=== PATIENT | female | born 1960 | race Caucasian/White ===

== ENCOUNTER → 2018-10-31 | Outpatient (CLI) | payer MEDICARE, OTHER ==
[~2018-10-31] MED LIST: ALPR.5 PO; ALPR1 PO; AMLO10 PO; ASPI81CH PO; CLON.1 PO; DIPH50 PO; ENOX40I SC; FAMO40 PO; FURO20 PO; FURO40 PO; Klor-Con 1010 MEQ PO; LISI20 PO; LISI5 PO; LOSARTAN-HCTZ1 EAC2 PO; MORP30ER PO; Morphine Sulfat15 MG PO; ONDA8 PO; OXYACE5T PO; POTCHL10ER PO; PROM25 PO; SOMA250 MG PO; TOPI100 PO
== END | disposition home or self-care (01) ==
LOC: PLD 08:53 → LAB SHORT 08:53
DX: D17.21 Benign lipomatous neoplasm of skin and subcutaneous tissue of right arm (principal)
CPT/HCPCS: 88304

== ENCOUNTER 2023-02-01 21:56 | Inpatient (IN) | payer MEDICARE, OTHER ==
[~2023-02-01] VITALS: Ht 154.9 cm; Wt 96.6 kg
[2023-02-01 22:34] LABS: BASOPHILS ABSOLUTE AUTO 0.03 K/mm3 (0.00-0.23); BASOPHILS PERCENT AUTO 0 % (0-2); EOSINOPHILS ABSOLUTE AUTO 0.06 K/mm3 (0.00-0.68); EOSINOPHILS PERCENT AUTO 1 % (0-6); Hematocrit 42.2 % (33.0-51.0); Hemoglobin 13.4 g/dL (11.5-16.0); IMMATURE GRAN ABSOLUTE AUTO 0.02 K/mm3 (0.00-0.10); IMMATURE GRAN PERCENT AUTO 0 % (0-1); LYMPHOCYTES ABSOLUTE AUTO 1.83 K/mm3 (0.84-5.20); LYMPHOCYTES PERCENT AUTO 20 % (21-46); MONOCYTES ABSOLUTE AUTO 0.78 K/mm3 (0.16-1.47); MONOCYTES PERCENT AUTO 8 % (4-13); Mean Corpuscular HGB 29.5 pg (26.0-34.0); Mean Corpuscular HGB Conc 31.8 g/dL (31.5-36.5); Mean Corpuscular Volume 93 fL (80-100); Mean Platelet Volume 9.3 fL (9.1-12.4); NEUTROPHILS ABSOLUTE AUTO 6.61 K/mm3 (1.96-9.15); NEUTROPHILS PERCENT AUTO 71 % (41-73); Platelet Count 274 K/mm3 (150-400); RDW Coefficient Variation 13.8 % (11.7-14.2); RDW Standard Deviation 46.7 fL (35.1-46.3); Red Blood Cell Count 4.54 M/mm3 (3.80-5.20); White Blood Cell Count 9.33 K/mm3 (4.00-11.30)
[2023-02-01 23:42] LABS: Albumin/Globulin Ratio 1.1 (0.8-1.8); Bilirubin, Total 0.3 mg/dL (0.1-1.0); Bun/Creatinine Ratio 9.4 (12.0-20.0); Calcium, Blood 9.3 mg/dL (8.5-10.1); Creatinine, Blood 10.8 mg/dL (0.40-1.00); Globulin, Blood 3.8 g/dL (2.2-4.0); Potassium, Blood 3.8 mmol/L (3.5-5.5); Total Protein, Blood 7.8 g/dL (6.4-8.2)
[2023-02-01] MEDS ORDERED: HYDCHL25 PO (23:56)
[2023-02-02 02:59] VITALS: BP 107/80
[2023-02-02 03:06] LABS: Albumin, Blood 3.5 g/dL (3.4-5.0); Anion Gap 15 mmol/L (6-16); Blood Urea Nitrogen 97 mg/dL (8-24); Bun/Creatinine Ratio 10.4 (12.0-20.0); CO2, Blood 21 mmol/L (21-32); Calcium, Blood 8.6 mg/dL (8.5-10.1); Chloride, Blood 106 mmol/L (98-108); Creatinine, Blood 9.29 mg/dL (0.40-1.00); Glomerular Filtration Rate 4 (60-); Glucose, Blood 116 mg/dL (70-99); Phosphorus, Blood 9.1 mg/dL (2.5-4.9); Potassium, Blood 3.8 mmol/L (3.5-5.5); Sodium, Blood 142 mmol/L (136-145)
--- NOTE | 2023-02-02 06:34 | NUR ---
SHIFT SUMMARY PATIENT ARRIVED TO PCU 13 VIA STRETCHER, SHE WAS ABLE TO STAND/PIVOT WITH 1 ASSIST TO THE BED. PATIENT ABLE TO ANSWER ORIENTATION QUESTIONS APPROPRIATELY BUT WOULD LOSE TRACK OF WHAT QUESTION SHE WAS ANSWERING OR FALL ASLEEP MID SENTENCE. PATIENT UNABLE TO PROVIDE HISTORY. PATIENT'S STRENGTH IS EQUAL, NO SIGN OF FACIAL DROOP. PATIENT IS TREMULOUS WITH FIXED GAZE WHEN NOT BEING INTERACTED WITH. VITAL SIGNS STABLE. AFIB LOW 100'S ON TELE. SPO2 93% ON 2 LITERS O2 VIA NC. PATIENT ASSESSED FOR SOURCES OF IGNITION. WILL CONTINUE TO MONITOR. CALL LIGHT WITHIN REACH.
--- NOTE | 2023-02-02 07:45 | NUR ---
RENAL US TECH AT BEDSIDE, 236ML URINE NOTED IN BLADDER, PT WAS ABLE TO VOID 200ML URINE AFTER THIS
[2023-02-02 08:00] VITALS: BP 1158/74
[2023-02-02 11:23] VITALS: BP 119/80
[2023-02-02 16:04] VITALS: BP 91/51
--- NOTE | 2023-02-02 18:34 | NUR ---
PT REMAINS WITH TWITCHING MOVEMENTS T.O DAY. NS INFUSING AT THIS TIME. FMAIYL HAS BEEN IN AND HAS BEEN UPDATED. PT WAS EDUCATED THAT SMOKING IS NOT ALLOWED IN THE HOSPITAL AND THAT SHE IS ON OXYGEN. PT TRIALED BEING OFF OF 02 TODAY WHICH WAS NOT SUCCESSFUL SPO2 DROPPED TO LOW 80s, NASAL CANNULA WAS RETURNED. VSS.
[2023-02-02 20:05] VITALS: BP 89/69
[2023-02-02 23:26] VITALS: BP 120/77
[2023-02-03 03:35] VITALS: BP 103/60
[2023-02-03 05:19] LABS: BASOPHILS ABSOLUTE AUTO 0.02 K/mm3 (0.00-0.23); BASOPHILS PERCENT AUTO 0 % (0-2); EOSINOPHILS ABSOLUTE AUTO 0.05 K/mm3 (0.00-0.68); EOSINOPHILS PERCENT AUTO 1 % (0-6); Hematocrit 36.8 % (33.0-51.0); Hemoglobin 11.6 g/dL (11.5-16.0); IMMATURE GRAN ABSOLUTE AUTO 0.02 K/mm3 (0.00-0.10); IMMATURE GRAN PERCENT AUTO 0 % (0-1); LYMPHOCYTES ABSOLUTE AUTO 1.26 K/mm3 (0.84-5.20); LYMPHOCYTES PERCENT AUTO 22 % (21-46); MONOCYTES ABSOLUTE AUTO 0.66 K/mm3 (0.16-1.47); MONOCYTES PERCENT AUTO 12 % (4-13); Mean Corpuscular HGB 29.7 pg (26.0-34.0); Mean Corpuscular HGB Conc 31.5 g/dL (31.5-36.5); Mean Corpuscular Volume 94 fL (80-100); Mean Platelet Volume 9.2 fL (9.1-12.4); NEUTROPHILS ABSOLUTE AUTO 3.69 K/mm3 (1.96-9.15); NEUTROPHILS PERCENT AUTO 65 % (41-73); Platelet Count 214 K/mm3 (150-400); RDW Coefficient Variation 13.9 % (11.7-14.2); RDW Standard Deviation 47.2 fL (35.1-46.3); Red Blood Cell Count 3.91 M/mm3 (3.80-5.20)
[2023-02-03 05:41] LABS: Albumin, Blood 3.1 g/dL (3.4-5.0); Anion Gap 10 mmol/L (6-16); Blood Urea Nitrogen 92 mg/dL (8-24); Bun/Creatinine Ratio 29.9 (12.0-20.0); CO2, Blood 24 mmol/L (21-32); Calcium, Blood 9.2 mg/dL (8.5-10.1); Chloride, Blood 112 mmol/L (98-108); Creatinine, Blood 3.08 mg/dL (0.40-1.00); Glomerular Filtration Rate 17 (60-); Glucose, Blood 100 mg/dL (70-99); Magnesium, Blood 2.2 mg/dL (1.6-2.4); Phosphorus, Blood 7.6 mg/dL (2.5-4.9); Potassium, Blood 3.7 mmol/L (3.5-5.5); Sodium, Blood 146 mmol/L (136-145)
--- NOTE | 2023-02-03 06:31 | NUR ---
SHIFT SUMMARY PATIENT ALERT AND ORIENTED X3, UNSURE OF DATE. ABLE TO TRANSFER TO COMMODE WITH 1 ASSIST. VITAL SIGNS STABLE. AFIB 110'S-140'S DEPENDING ON ACTIVITY. PATIENT ON 2 LITERS O2 VIA NC TO HELP MAINTAIN SPO2 >90% WHILE SLEEPING, PATIENT NOTED TO HAVE APNIC EPISODES WHILE SLEEPING. NO ACUTE ISSUES NOTED OVERNIGHT. PATIENT EDUCATED ON IGNITION RISK WHILE ON OXYGEN IN THE HOSPITAL. WILL CONTINUE TO MONITOR. CALL LIGHT WITHIN REACH.
--- NOTE | 2023-02-03 09:24 | NUR ---
CALCIUM GLUCONATE HELD PER V/O FROM DR CAMILO
[2023-02-03 09:27] VITALS: BP 120/90
[2023-02-03 09:52] LABS: Anti-Xa UFH, PHA Monitoring <0.10 IU/mL; International Normalized Ratio 1.01; Prothrombin Time Results 10.6 Sec (9.7-11.5)
--- NOTE | 2023-02-03 12:53 | NUR ---
PT HAS NOT ATE BREAKFAST OF LUNCH TODAY
[2023-02-03 15:37] VITALS: BP 132/121
[2023-02-03 15:40] VITALS: BP 117/89
--- NOTE | 2023-02-03 17:46 | NUR ---
132/121 PRESSURE THAT WAS RECORDED AT 1537 IS EERONEOUS.
--- NOTE | 2023-02-03 18:28 | NUR ---
PT WITH BLACK STOOLS WHEN UP TO BEDSIDE COMMODE, DR CAMILO CALLED TO UPDATE. NEW ORDERS OBTAINED TO STOP HEPARIN AT THIS TIME, WHICH HERPARIN IS STOPPED NOW. REPEAT H&H NOW AND AT 2200 TONIGHT, AND PROTONIX IVP BID. PT WITH VSS T/O THE DAY. SHE REMAINS ALERT, ORIENTED TO SELF AND PLACE AND APPEARS TO BE BECOMING MORE CLEAR MENTATION DIAZ THROUGH THE DAY. PT REMAINS WITH TWITCH. PHARMACY IS UPDATED THAT HEPARIN DRIP IS STOPPED. PT EDUCATED THAT SHE CAN NOT SMOKE IN HOSPITAL, AND AGREES NOT TO. PT UP TO BEDSIDE CHAIR THROUGH THE AFTERNOON.
[2023-02-03 18:35] LABS: Hematocrit 39.8 % (33.0-51.0); Hemoglobin 12.6 g/dL (11.5-16.0)
[2023-02-03 20:44] VITALS: BP 134/110
--- NOTE | 2023-02-03 21:44 | NUR ---
ASSUMPTION OF CARE: PATIENT IS ALERT AND ORIENTED COOPERATIVE WITH CARE. PLEASANT, DOES HAVE SOME SPASTIC JERKY MOVEMENTS, THAT SEEM TO BE BASELINE WHEN ASKED, DAY RN REPORTS IMPROVEMENT IN CHARTING. PATIENT EDUCATED ON FIRE AND OXYGEN SAFETY. AFIB UP TO 110'S BUT TYPICALLY BELOW 100 CURRENLTY AT 87. DENIES CHEST PAIN PRESSURE OR SOB. ON RA WHILE AWAKE, IS NOW ON 2L WHILE SLEEPING FOR OXYGENATION, POSSIBLE SLEEP APNEA, ENDORSES SHE IS NONCOMPLIANT WITH CPAP, BUT WILL START WHEN HOME. EDUCATION ON RISKS OF NO CPAP USE PATIENT VERBALIZED UNDERSTANDING. PATIENT WAS 1P ASSIST TO BSC, 400 URINE VOID, BED BATH PREFORMED AND PERICARE LOVE AREA COULD POTENTIALLY HAVE YEAST LIKE INFECTION DUE TO SPECIFIC SMELL. PATIENT AWARE. GOWN CHANGED AND BRIEF WELL. PATIENT STILL RUNNING 1/2NS AT 50 WILL CONTINUE TO MONITOR UNTIL SHIFT CHANGE NO CONCERNS FROM THIS RN, RECOMMEND DOWNGRADE TO MEDICAL IF NOT DISCHARGED TOMORROW.
[2023-02-03 22:22] LABS: Hematocrit 40.1 % (33.0-51.0); Hemoglobin 12.8 g/dL (11.5-16.0)
[2023-02-03 23:28] VITALS: BP 137/96
[2023-02-04 03:11] VITALS: BP 149/99
--- NOTE | 2023-02-04 03:17 | NUR ---
END OF SHIFT: NO CHANGE FROM ASSUMPTION OF CARE ONLY IMPROVEMENT TO HERATRATE, PATIENT STILL INFUSING 1/2 NS. WILL AWAIT MORNING LAB RESULTS STILL DENIES CHEST PAIN PRESSURE OR SOB. HAS BEEN APPROPRAITE BED ALARM WAS PLACED THROUGH THE NIGHT SHE FEELS MUCH STRONGER AFTER SLEEPING AND PLANNED ON WALKING BY SELF TO BATHROOM. FOR SAFETY PLACED BED ALARM AND 1 PERSON TRANSFER ASSIST. MAINLY SBA. WILL CONTINUE TO MONITOR UNITL SHIFT CHANGE
[2023-02-04 03:49] LABS: BASOPHILS ABSOLUTE AUTO 0.01 K/mm3 (0.00-0.23); BASOPHILS PERCENT AUTO 0 % (0-2); EOSINOPHILS ABSOLUTE AUTO 0.04 K/mm3 (0.00-0.68); EOSINOPHILS PERCENT AUTO 1 % (0-6); Hematocrit 38.7 % (33.0-51.0); Hemoglobin 12.5 g/dL (11.5-16.0); IMMATURE GRAN ABSOLUTE AUTO 0.03 K/mm3 (0.00-0.10); IMMATURE GRAN PERCENT AUTO 1 % (0-1); LYMPHOCYTES PERCENT AUTO 19 % (21-46); MONOCYTES ABSOLUTE AUTO 0.63 K/mm3 (0.16-1.47); MONOCYTES PERCENT AUTO 10 % (4-13); Mean Corpuscular HGB 29.6 pg (26.0-34.0); Mean Corpuscular HGB Conc 32.3 g/dL (31.5-36.5); Mean Corpuscular Volume 92 fL (80-100); Mean Platelet Volume 9.5 fL (9.1-12.4); NEUTROPHILS PERCENT AUTO 69 % (41-73); Platelet Count 195 K/mm3 (150-400); RDW Coefficient Variation 13.8 % (11.7-14.2); RDW Standard Deviation 45.6 fL (35.1-46.3); Red Blood Cell Count 4.23 M/mm3 (3.80-5.20); White Blood Cell Count 6.21 K/mm3 (4.00-11.30)
[2023-02-04 04:08] LABS: CPK Creatine Kinase 190 U/L (26-193); Magnesium, Blood 1.7 mg/dL (1.6-2.4)
[2023-02-04 04:22] LABS: Albumin, Blood 3.4 g/dL (3.4-5.0); Anion Gap 8 mmol/L (6-16); Blood Urea Nitrogen 63 mg/dL (8-24); Bun/Creatinine Ratio 63.7 (12.0-20.0); CO2, Blood 27 mmol/L (21-32); Calcium, Blood 9.6 mg/dL (8.5-10.1); Chloride, Blood 114 mmol/L (98-108); Creatinine, Blood 0.99 mg/dL (0.40-1.00); Glomerular Filtration Rate 64 (60-); Glucose, Blood 105 mg/dL (70-99); Potassium, Blood 3.1 mmol/L (3.5-5.5); Sodium, Blood 149 mmol/L (136-145)
[2023-02-04 04:36] LABS: Phosphorus, Blood 3.3 mg/dL (2.5-4.9)
[2023-02-04 07:55] VITALS: BP 161/94
[2023-02-04 12:33] VITALS: BP 168/119
[2023-02-04 12:34] VITALS: BP 168/119
--- NOTE | 2023-02-04 14:58 | NUR ---
DR BLACK WAS CALLED WITH LAB RESULTS, DR CAMILO IS AWARE OF HYPERTENSION NOTED, PT WILL BE SWTICHED TO [facility] FOR HOME.
[2023-02-04 15:00] VITALS: BP 160/118
[2023-02-04] MEDS ORDERED: ELIQUIS5 M2 PO (15:22)
[2023-02-04] MEDS ORDERED: Calcium Acetat667 MG PO (15:22)
[2023-02-04] MEDS ORDERED: MAGNESIUM OXID500 MG PO (15:23)
[2023-02-04] MEDS ORDERED: CARV6.25 PO (15:23)
[2023-02-04] MEDS ORDERED: FAMO20 PO (15:23)
--- NOTE | 2023-02-04 16:37 | NUR ---
IV REMOVED AND PRESSURE DRESSED. PT EXPRESSED UNDERSTANDING OD DC TEACHING, SHE DENIES FURTHER NEEDS
== END 2023-02-04 16:57 | disposition home or self-care (01) | DRG 683 ==
LOC: ER 21:56 → ICUE 02-02 00:29 → PCU 02-02 00:29
PROVIDERS: Family Medicine; Internal Medicine; Internal Medicine Nephrology; Physician Assistant; ADMIT Student in an Organized Health Care Education/Training Program
DX: N17.9 Acute kidney failure, unspecified (principal); E87.0 Hyperosmolality and hypernatremia; M19.90 Unspecified osteoarthritis, unspecified site; I48.91 Unspecified atrial fibrillation; I12.9 Hypertensive chronic kidney disease with stage 1 through stage 4 chronic kidney disease, or unspecified chronic kidney disease; N18.9 Chronic kidney disease, unspecified; R00.0 Tachycardia, unspecified; E86.9 Volume depletion, unspecified; E83.51 Hypocalcemia; E83.39 Other disorders of phosphorus metabolism; E88.09 Other disorders of plasma-protein metabolism, not elsewhere classified; E87.6 Hypokalemia; D63.1 Anemia in chronic kidney disease; Z87.891 Personal history of nicotine dependence; Z98.890 Other specified postprocedural states; Z88.8 Allergy status to other drugs, medicaments and biological substances; Z98.1 Arthrodesis status; Z79.891 Long term (current) use of opiate analgesic; Z79.899 Other long term (current) drug therapy
CPT/HCPCS: 36415; 71046; 76770; 80053; 80069; 82330; 82550; 83605; 83735; 83880; 84100; 84132; 84145; 84295; 84484; 85014; 85018; 85025; 85520; 85610; 85730; 93005; 93010; 93306; 94760; 96360; 96361; 99285-25; A9270; C9113; J0612; J1644; J7030; J7070; J7120

== ENCOUNTER → 2023-05-28 | Outpatient (CLI) | payer MEDICARE, OTHER ==
[~2023-05-28] MED LIST changes: +CARV6.25 PO; +Calcium Acetat667 MG PO; +ELIQUIS5 M2 PO; +FAMO20 PO; +HYDCHL25 PO; +MAGNESIUM OXID500 MG PO
[2023-05-28 19:34] LABS: Bun/Creatinine Ratio 26.1 (12.0-20.0); Calcium, Blood 9.8 mg/dL (8.5-10.1); Creatinine, Blood 0.88 mg/dL (0.40-1.00); Potassium, Blood 3.8 mmol/L (3.5-5.5)
== END ==
LOC: LAB SHORT 11:55 → LAB 11:55
PROVIDERS: Family Medicine
DX: R60.0 Localized edema (principal)
CPT/HCPCS: 80048

== ENCOUNTER 2025-01-13 10:08 | Inpatient (IN) | payer MEDICARE, OTHER ==
[2025-01-13] VITALS (13 sets, daily range): BP systolic 64–132; BP diastolic 48–102
[~2025-01-13] VITALS: Ht 154.9 cm; Wt 112.4 kg
[2025-01-13 10:57] LABS: Base Excess Venous -2.9 mmol/L; Bicarbonate Venous 21.1 mmol/L (24.0-30.0); PCO2 Venous 58.2 mmHg (38-42)
[2025-01-13 10:58] LABS: pH Blood Venous 7.23 (7.34-7.37)
[2025-01-13 11:03] LABS: Calcium, Ionized (POC) 1.21 mmol/L (1.10-1.46); Chloride (POC) 104 mmol/L (98-108); Glucose (ISTAT POC) 124 mg/dL (70-99); Hemoglobin (POC) 12.9 g/dL (12.0-16.0); Potassium (POC) 4.7 mmol/L (3.5-5.5); Sodium (POC) 138 mmol/L (135-148); Total CO2 (POC) 25 mmol/L (21-32)
[2025-01-13 11:21] LABS: BASOPHILS ABSOLUTE AUTO 0.04 K/mm3 (0.00-0.23); BASOPHILS PERCENT AUTO 1 % (0-2); EOSINOPHILS ABSOLUTE AUTO 0.01 K/mm3 (0.00-0.68); EOSINOPHILS PERCENT AUTO 0 % (0-6); Hematocrit 40.4 % (33.0-51.0); Hemoglobin 12.4 g/dL (11.5-16.0); IMMATURE GRAN ABSOLUTE AUTO 0.05 K/mm3 (0.00-0.10); IMMATURE GRAN PERCENT AUTO 1 % (0-1); LYMPHOCYTES ABSOLUTE AUTO 1.66 K/mm3 (0.84-5.20); LYMPHOCYTES PERCENT AUTO 24 % (21-46); MONOCYTES ABSOLUTE AUTO 0.49 K/mm3 (0.16-1.47); MONOCYTES PERCENT AUTO 7 % (4-13); Mean Corpuscular HGB 31.3 pg (26.0-34.0); Mean Corpuscular HGB Conc 30.7 g/dL (31.5-36.5); Mean Corpuscular Volume 102 fL (80-100); NEUTROPHILS ABSOLUTE AUTO 4.78 K/mm3 (1.96-9.15); NEUTROPHILS PERCENT AUTO 68 % (41-73); NRBC ABSOLUTE 0.05 K/mm3 (0.00-0.02); NRBC Auto 0.7 /100 WBC (0.0-0.2); Platelet Count 217 K/mm3 (150-400); RDW Coefficient Variation 12.9 % (11.7-14.2); RDW Standard Deviation 48.9 fL (35.1-46.3); Red Blood Cell Count 3.96 M/mm3 (3.80-5.20); White Blood Cell Count 7.03 K/mm3 (4.00-11.30)
[2025-01-13 11:41] LABS: Alanine Aminotransfer (ALT/SGP 54 U/L (12-78); Albumin, Blood 3.7 g/dL (3.4-5.0); Alk Phos 102 U/L (50-136); Anion Gap 9 mmol/L (3-11); Aspartate Aminotrans (AST/SGOT 76 U/L (12-37); Bilirubin, Total 0.4 mg/dL (0.1-1.0); Blood Urea Nitrogen 54 mg/dL (8-24); Bun/Creatinine Ratio 29.3 (12.0-20.0); CO2, Blood 28 mmol/L (21-32); Calcium, Blood 8.6 mg/dL (8.5-10.1); Chloride, Blood 105 mmol/L (98-108); Creatinine, Blood 1.84 mg/dL (0.40-1.00); Ethanol (Alcohol), Blood, Med <3 mg/dL; Globulin, Blood 3.7 g/dL (2.2-4.0); Glomerular Filtration Rate 30 (60-); Glucose, Blood 123 mg/dL (70-99); Potassium, Blood 4.8 mmol/L (3.5-5.5); Sodium, Blood 137 mmol/L (136-145); Total Protein, Blood 7.4 g/dL (6.4-8.2)
[2025-01-13] MEDS ORDERED: Furosemide 10 MG / ML 2ML Vial IV ONE (12:10)
[2025-01-13] MEDS ORDERED: TOPI50 PO (12:42)
[2025-01-13] MEDS ORDERED: Indapamide2.5 MG PO (12:43)
[2025-01-13] MEDS ORDERED: Acetaminophen 325 MG TABLET PO PRN (12:50)
[2025-01-13] MEDS ORDERED: Morphine Sulfate IR 15 MG Tab PO PRN (12:50)
[2025-01-13] MEDS ORDERED: NS 1,000 ML IV SCH (12:50)
[2025-01-13] MEDS ORDERED: Prochlorperazine Edisylate 10 mg Vial IV PRN (13:05)
[2025-01-13] MEDS ORDERED: Heparin Sodium,Porcine 5,000 UNIT/0.5 ML SDV SC SCH (14:00)
[2025-01-13] MEDS ORDERED: POTA10T PO (15:16)
[2025-01-13] MEDS ORDERED: CETI5 PO (15:18)
[2025-01-13] MEDS ORDERED: IBUP200 PO (15:18)
[2025-01-13 15:40] LABS: Base Excess Venous -1.8 mmol/L; Bicarbonate Venous 21.9 mmol/L (24.0-30.0); PCO2 Venous 63.4 mmHg (38-42)
[2025-01-13 15:42] LABS: pH Blood Venous 7.22 (7.34-7.37)
[2025-01-13] MEDS ORDERED: Thiamine HCl 500 MG in NS 100 ML IV SCH (16:00)
--- NOTE | 2025-01-13 16:25 | NUR ---
ADMIT TO PCU 11: PATIENT ALERT AND ORIENTED, BUT FALLS ASLEEP MID CONVERSATION. ANSWERING ALL QUESTIONS CORRECTLY AND ABLE TO MAKE NEEDS KNOWN. DAUGHTER AT BEDSIDE HELPING WITH HISTORY QUESTIONS. FOLLOWING COMMANDS. 2 PERSON ASSIST TO BSC UPON ARRIVAL TO PCU. MOVING ALL EXTREMITIES AND FOLLOWING COMMANDS. TELE SHOWING AFIB WITH HR 70'S. HISTORY OF AFIB AND PATIENT TAKES ELIQUIS WITH LAST DOSE THIS MORNING. IV FLUIDS AND IV THIAMINE INFUSING. DENIES CHEST PAIN/PRESSURE/PALPITATIONS. PPP. SCATTERED BRUISING NOTED TO BLE. MINIMAL EDEMA TO BLE. UPON ARRIVAL FROM ED, PATIENT WEARING 2L NASAL CANNULA. SATING 92-94%. DR. JARAMILLO CALLED BY THIS RN TO REQUEST REPEAT VBG. VBG ORDERS IN PLACE. RESPIRATORY IN TO PLACE BIPAP. BIPAP SETTINGS 18/8 AND 35% FIO2. PATIENT TOLERATING BIPAP AT THIS TIME. DAUGHTER WENT HOME TO OBTAIN PATIENTS HOME CPAP. DENIES COUGH. NOTED SNORE WITH NASAL CANNULA. BOWEL TONES PRESENT THROUGHOUT ALL FOUR QUADRANTS. DENIES ABDOMINAL PAIN/NAUSEA. BEDSIDE SWALLOW COMPLETED AND NO ISSUES NOTED WITH SWALLOWING. LAST BOWEL MOVEMENT YESTERDAY MORNING. PUREWICK IN PLACE AT THIS TIME. SCATTERED BRUISING THROUGHOUT. RED/PURPLE DISCOLORATION ACROSS UPPER BACK, DAUGHTER REPORTS DISCOLORATION BEING FROM HEATING PAD. HOME MED LIST RECONCILED AND COPY PLACED IN CHART. DENIES NEEDS AT THIS TIME. CALL LIGHT IN REACH AND BED ALARM IN PLACE.
[2025-01-13] MEDS ORDERED: Carvedilol 6.25 MG Tab PO SCH (17:00)
--- NOTE | 2025-01-13 17:54 | NUR ---
DR. JARAMILLO CALLED TO UPDATE ON RECENT BLOOD PRESSURES SEE CHARTED VITALS. ORDERS FOR ONE TIME 500ML NORMAL SALINE BOLUS AT THIS TIME, HOLD 1700 COREG DOSE AND CONTINUE NORMAL SALINE AT 75ML/HR POST BOLUS. PATIENT WEARING BIPAP AT THIS TIME. DAUGHTER REMAINS AT BEDSIDE.
[2025-01-13] MEDS ORDERED: NS 500 ML IV ONE (17:55)
[2025-01-13] MEDS ORDERED: Furosemide 10 MG / ML 2ML Vial IV SCH (18:00)
[2025-01-13] MEDS ORDERED: Topiramate 25 MG Tab PO SCH (21:00)
[2025-01-13] MEDS ORDERED: Apixaban 5 MG Tab PO SCH (21:00)
[2025-01-13] MEDS ORDERED: Docusate Sodium 100 MG Cap PO SCH (21:00)
[2025-01-13 23:36] LABS: Base Excess Venous -3.3 mmol/L; Bicarbonate Venous 21.2 mmol/L (24.0-30.0); PCO2 Venous 58.8 mmHg (38-42)
[2025-01-13 23:37] LABS: pH Blood Venous 7.23 (7.34-7.37)
[2025-01-14] VITALS (8 sets, daily range): BP systolic 83–126; BP diastolic 63–94
[2025-01-14] MEDS ORDERED: Midodrine 2.5 MG Tab PO SCH (04:00)
[2025-01-14] MEDS ORDERED: Midodrine 2.5 MG Tab PO ONE (04:00)
[2025-01-14] MEDS ORDERED: Midodrine 2.5 MG Tab PO PRN (04:00)
[2025-01-14 04:31] LABS: Bicarbonate Venous 21.2 mmol/L (24.0-30.0); PCO2 Venous 64.5 mmHg (38-42)
[2025-01-14 04:38] LABS: BASOPHILS ABSOLUTE AUTO 0.04 K/mm3 (0.00-0.23); BASOPHILS PERCENT AUTO 1 % (0-2); EOSINOPHILS ABSOLUTE AUTO 0.09 K/mm3 (0.00-0.68); EOSINOPHILS PERCENT AUTO 2 % (0-6); Hematocrit 37.9 % (33.0-51.0); Hemoglobin 11.3 g/dL (11.5-16.0); IMMATURE GRAN ABSOLUTE AUTO 0.03 K/mm3 (0.00-0.10); IMMATURE GRAN PERCENT AUTO 1 % (0-1); LYMPHOCYTES ABSOLUTE AUTO 1.78 K/mm3 (0.84-5.20); LYMPHOCYTES PERCENT AUTO 30 % (21-46); MONOCYTES ABSOLUTE AUTO 0.71 K/mm3 (0.16-1.47); MONOCYTES PERCENT AUTO 12 % (4-13); Mean Corpuscular HGB 31.5 pg (26.0-34.0); Mean Corpuscular HGB Conc 29.8 g/dL (31.5-36.5); Mean Corpuscular Volume 106 fL (80-100); NEUTROPHILS ABSOLUTE AUTO 3.32 K/mm3 (1.96-9.15); NEUTROPHILS PERCENT AUTO 56 % (41-73); NRBC ABSOLUTE 0.05 K/mm3 (0.00-0.02); NRBC Auto 0.8 /100 WBC (0.0-0.2); Platelet Count 147 K/mm3 (150-400); RDW Coefficient Variation 12.9 % (11.7-14.2); RDW Standard Deviation 49.8 fL (35.1-46.3); Red Blood Cell Count 3.59 M/mm3 (3.80-5.20); White Blood Cell Count 5.97 K/mm3 (4.00-11.30)
[2025-01-14 05:18] LABS: Albumin, Blood 3.3 g/dL (3.4-5.0); Albumin/Globulin Ratio 1.1 (0.8-1.8); Bilirubin, Total 0.3 mg/dL (0.1-1.0); Calcium, Blood 8.4 mg/dL (8.5-10.1); Creatinine, Blood 1.8 mg/dL (0.40-1.00); Globulin, Blood 3.1 g/dL (2.2-4.0); Potassium, Blood 4.3 mmol/L (3.5-5.5); Total Protein, Blood 6.4 g/dL (6.4-8.2)
[2025-01-14 07:21] LABS: Base Excess Venous -3.2 mmol/L; Bicarbonate Venous 21.1 mmol/L (24.0-30.0); PCO2 Venous 62.4 mmHg (38-42)
[2025-01-14 07:23] LABS: pH Blood Venous 7.21 (7.34-7.37)
--- NOTE | 2025-01-14 07:39 | NUR ---
SHIFT SUMMARY: PT IS LETHARGIC, DOES HAVE A BLANK STARE AND SPASTIC BODY MOVEMENTS. A&OX3, COOPERATIVE WITH CARE. HYPOTENSIVE, SYS 80'S-90'S, MAP >65, ON BIPAP 35% FIO2, SATTING >97%. AFIB 60'S-70'S. DENIES PAIN. PT TOLERATING A REGULAR DIET WITH THIN LIQUIDS. SHE TAKES HER PILLS WHOLE WITH FLUID. PT HAD A CRITICAL VBG, RESIDENT AWARE, ORDERED A REPEAT VBG. NO CHANGES IN PT S NEURO STATUS. X2 ASSIST WITH FWW AND GAIT BELT. PT'S DAUGHTER STATES SHE USES A CANE BASELINE. PT VOIDING ADEQUATE AMOUNTS OF CLEAR, YELLOW URINE IN BSC. NO BM THIS SHIFT. BED IN LOWEST POSITION, CALL LIGHT WITHIN REACH. PT HAS NOT USED HER CALL LIGHT. FREQUENT ROUNDING COMPLETE AND BED ALARM SET FOR PT'S SAFETY.
[2025-01-14] MEDS ORDERED: Indapamide 2.5 MG Tab PO SCH (09:00)
[2025-01-14] MEDS ORDERED: Doxycycline Hyclate 100 MG in Dextrose 5% 250 ML IV SCH (09:00)
[2025-01-14] MEDS ORDERED: CefTRIAXone Sodium 1,000 MG in NS 100 ML IV SCH (09:00)
--- NOTE | 2025-01-14 17:18 | NUR ---
SHIFT SUMMARY: PATIENT IS ALERT AND ORIENTED X3, TO SELF,PERSON & LOCATION, KNOWS SHE IS IN [place] BUT WAS RE-ORIENTED TO BEING IN THE HOSPITAL AND WHAT BROUGHT HER IN. SATTING >92% ON ROOM AIR, SEE PREVIOUS NOTE FOR MORE INFORMATION. PATIENT IS MEDICAL STATUS WITH TELE. HAS THE BIPAP IN THE ROOM BUT NOT WEARING IT PER MD ORDER TO ONLY PLACE IF PT GETS OBTUNDED OR MORE CONFUSED. DAUGHTER WAS AT BEDSIDE THROUGHOUT THE SHIFT. PLAN CONTINUES TO BE IV ANTIBIOTICS, AND FLUIDS CONTINUE AT 75ML/HR. PT WAS ABLE TO VOID IN THE BEDSIDE COMMODE WITH A GAIT BELT AND 1 PERSON ASSIST. PT HAS CALL LIGHT WITHIN REACH, BED IN LOWEST POSITION & STATING NOTHING ELSE IS NEEDED AT THIS TIME.
[2025-01-15 00:22] VITALS: BP 118/94
[2025-01-15 04:15] VITALS: BP 90/61
[2025-01-15 04:22] LABS: Bun/Creatinine Ratio 30.4 (12.0-20.0); Calcium, Blood 8.4 mg/dL (8.5-10.1); Creatinine, Blood 1.12 mg/dL (0.40-1.00); Potassium, Blood 3.9 mmol/L (3.5-5.5)
--- NOTE | 2025-01-15 06:40 | NUR ---
End of Shift Summary Uneventful night , patient refused both CPAP and BiPAP , remained on 1 L NC overnight. 1 person assist to bedside commode.
--- NOTE | 2025-01-15 07:44 | NUR ---
ASSUMPTION NOTE: THIS RN TO ASSUME CARE OF PATIENT. PATIENT'S DAUGHTER AT BEDISDE AND CHATTING WITH PT. PT VITAL SIGNS TAKEN & PT STABLE. PT DENIED ANY CHEST PAIN/PRESSURE OR FEELING SHORT OF BREATH. SATTING >92% ON 1 LITER VIA NASAL CANNULA, WILL BE TITRATING OFF OXYGEN TODAY. PT IS SITTING UP EATING BREAKFAST, CALL LIGHT WITHIN REACH & STATING NOTHING ELSE IS NEEDED AT THIS TIME.
--- NOTE | 2025-01-15 08:33 | NUR ---
ROUNDED: ROUNDED AND PLAN WILL BE TO DISCHARGE TODAY PENDING PT EVAULATION. DAUGHTER AT [facility] AND AWARE OF THIS.
[2025-01-15] MEDS ORDERED: Doxycycline Hyclate 100 MG TAB PO SCH (09:00)
[2025-01-15 12:15] VITALS: BP 155/120
[2025-01-15] MEDS ORDERED: AMOCLA875 PO (12:40)
[2025-01-15] MEDS ORDERED: FURO40 PO (12:41)
[2025-01-15] MEDS ORDERED: POTA10T PO (12:42)
--- NOTE | 2025-01-15 13:11 | NUR ---
DISCHARGE NOTE: PATIENT IS ALERT AND ORIENTED X4, TELE WAS TAKEN OFF & IV TAKEN OUT. PATIENT DAUGHTER AT BEDSIDE AND IS HER RIDE. WENT OVER WITH THE PATIENT REGARDING FOLLOW UP WITH HER PRIMARY WITHIN 1WEEK AND HER MECIATIONS BEING SENT OVER TO [facility] IN [place]. PT TOOK ALL PERSONAL BELONGINGS & DISCHARGE PACKET WITH HER. WAS TAKEN OUT VIA WHEELCHAIR.
== END 2025-01-15 12:59 | disposition home or self-care (01) | DRG 189 ==
LOC: ER 10:08 → PCU 13:01 → ERHOLD 13:01 → PCU 13:59
PROVIDERS: Emergency Medicine; Internal Medicine; Student in an Organized Health Care Education/Training Program; ADMIT Internal Medicine
PROC: 5A09357 Assistance with Respiratory Ventilation, Less than 24 Consecutive Hours, Continuous Positive Airway Pressure (ICD-10-PCS; principal; 2025-01-11)
DX: J96.01 Acute respiratory failure with hypoxia (principal); J69.0 Pneumonitis due to inhalation of food and vomit; G92.8 Other toxic encephalopathy; I48.20 Chronic atrial fibrillation, unspecified; N17.9 Acute kidney failure, unspecified; F11.20 Opioid dependence, uncomplicated; J96.02 Acute respiratory failure with hypercapnia; I45.10 Unspecified right bundle-branch block; T40.2X5A Adverse effect of other opioids, initial encounter; I12.9 Hypertensive chronic kidney disease with stage 1 through stage 4 chronic kidney disease, or unspecified chronic kidney disease; M54.2 Cervicalgia; M54.9 Dorsalgia, unspecified; G89.29 Other chronic pain; I95.9 Hypotension, unspecified; J44.9 Chronic obstructive pulmonary disease, unspecified; F10.90 Alcohol use, unspecified, uncomplicated; N18.9 Chronic kidney disease, unspecified; M19.90 Unspecified osteoarthritis, unspecified site; Z79.01 Long term (current) use of anticoagulants; Z79.899 Other long term (current) drug therapy; Z87.820 Personal history of traumatic brain injury; Z96.652 Presence of left artificial knee joint; Z98.890 Other specified postprocedural states; Z87.891 Personal history of nicotine dependence; Z88.8 Allergy status to other drugs, medicaments and biological substances
CPT/HCPCS: 36415; 70450; 71045; 80047; 80048; 80053; 80320; 82140; 82803; 83880; 84439; 84443; 84484; 85014; 85025; 86850; 86900; 86901; 93005; 93010; 93306; 94660; 94762; 96374; 97116; 97162; 99285-25; A9270; J0696; J1938; J3411; J7030; J7040; J7060